=== PATIENT | female | born 1995 | race Caucasian/White ===

== ENCOUNTER 2016-12-20 00:40 | Emergency (ER) | payer MEDICAID ==
[2016-12-20 00:51] VITALS: BP 124/81
[2016-12-20] MEDS ORDERED: LIDOCAINE 2% 10 ML MDV ONE (00:54)
[2016-12-20] MEDS ORDERED: CLINDAMYCIN 150 MG CAPSULE PO STA (01:07)
--- NOTE | 2016-12-20 01:08 | ED Physician Documentation ---
PD HPI UPPER EXT INJURY - Stated complaint Stated Complaint: R HAND PX - Chief complaint Chief Complaint: General - History obtained from History obtained from: Patient, Friend - History of Present Illness Location: Right, Finger Where injury occurred: Home Timing - onset: How many days ago (4) Timing - details: Gradual onset, Still present Worsened by: Moving, Palpating Contributing factors: No: Anticoagulated Similar symptoms before: Has not had sx before Recently seen: Not recently seen - Additonal information Additional information: Patient is a21 year old female with a history of polysubstance abuse, but denies IV drug abuse who is presenting to the emergency department for finger pain and swelling. Patient states that she had an ingrown nail and now it has spread so that she now has a fluid collection in her left thumb. Patient states that it has been going on for the last few days and her friend made her come in to get seen. Review of Systems Constitutional: denies: Fever, Chills Eyes: denies: Discharge, Irritation Ears: reports: Reviewed and negative Nose: denies: Rhinorrhea / runny nose, Congestion Throat: denies: Sore throat Cardiac: denies: Chest pain / pressure, Palpitations Respiratory: reports: Cough. denies: Wheezing GI: reports: Nausea. denies: Vomiting : reports: Reviewed and negative Skin: reports: Rash, Lesions Musculoskeletal: reports: Extremity pain, Extremity swelling Neurologic: denies: Generalized weakness, Focal weakness, Numbness Psychiatric: denies: Depressed, Suicidal PD PAST MEDICAL HISTORY - Past Medical History Past Medical History: Yes Cardiovascular: None Respiratory: None Neuro: None Endocrine/Autoimmune: None GI: None TRACK HELPER: None : None HEENT: None Psych: Depression, Anxiety Musculoskeletal: None Derm: None - Past Surgical History Past Surgical History: No - Present Medications Home Medications: Ambulatory Orders Medication Instructions Recorded Confirmed Clindamycin HCl 300 mg PO Q6H 7 Days capsule 12/20/16 - Allergies Allergies/Adverse Reactions: Allergies Allergy/AdvReac Type Severity Reaction Status Date / Time amoxicillin Allergy Hives Verified 12/20/16 00:52 - Social History Does the pt smoke?: Yes Smoking Status: Current every day smoker Does the pt drink ETOH?: No Does the pt have substance abuse?: Yes Substance Use and Type: Meth, Heroin PD ED PE NORMAL - Vitals Vital signs reviewed: Yes - General General: Alert and oriented X 3 - HEENT HEENT: Atraumatic, PERRL - Neck Neck: Supple, no meningeal sign - Cardiac Cardiac: RRR, No murmur - Respiratory Respiratory: No respiratory distress - Abdomen Abdomen: Non distended - Neuro Neuro: Alert and oriented X 3, No motor deficit, No sensory deficit, Normal speech - Psych Psych: Normal mood, Normal affect PD ED PE EXPANDED - Derm Derm: Warm and dry, Pick christian - Extremities Extremities: Right finger(s) (tenderness and swelling of right thumb with purulent fluid collection) Results - Vitals Vitals: Vital Signs - 24 hr 12/20/16 00:49 Temperature 36.9 C Heart Rate 100 Respiratory 18 Rate Blood Pressure 124/81 H O2 Saturation 98 Oxygen O2 Source Room air Procedures - Abscess I&D (location) right thumb Preparation: Lidocaine 2 % Incision: Incised with scalpel, Loculations broken, Other (deroofed anterior fat pad, copious purulent discharge) Other: Pt tolerated well, Dressing applied, Antibiotic prescribed - Regional nerve block Nerve block site: Digital - note digit(s) Right / left: Right Nerve block anesthesia: Lidocaine 2% Nerve block aftercare: Excellent anesthesia PD MEDICAL DECISION MAKING - ED course Complexity details: reviewed old records, re-evaluated patient, considered differential, d/w patient ED course: Patient was seen and examined at bedside. patient's abscess was drained as described above. Patient was started on clindamycin since she was high risk for mrsa. Patient was given dietary, discharge and return instructions. Patient required no further work up and was stable for discharge home with outpatient follow up. Departure - Departure Disposition: 01 Home, Self Care Clinical Impression: Cellulitis and abscess of finger, unspecified Condition: Good Instructions: ED Infec Skin Cellulitis Follow-Up: primary, care provider [Other] - Within 1 week Prescriptions: Clindamycin HCl 300 mg PO Q6H 7 Days capsule Comments: Your symptoms today are being caused by an infection. Now that it is opened it should heal. You had your first dose of antibiotics tonight and will need to be on them for the next week. You should keep your thumb clean and dry. You can apply topical antibiotics. Your drug abuse is having serious affects on your health and your immune system. You should seek help in quitting. You may return to the emergency department at any time for new, worsening or uncontrollable symptoms. Discharge Date/Time: 12/20/16 01:22
[2016-12-20] MEDS ORDERED: CLINDAMYCIN 150 MG CAPSULE PO ONE (01:13)
[2016-12-20] MEDS ORDERED: BACITRACIN OINT TOP ONE (01:13)
== END 2016-12-20 01:22 | disposition home or self-care (01) ==
LOC: ED 00:40
DX: L02.511 Cutaneous abscess of right hand (principal); L03.011 Cellulitis of right finger; F17.200 Nicotine dependence, unspecified, uncomplicated
CPT/HCPCS: 10060; 99283; A9270